=== PATIENT | female | born 2000 | race Asian ===

== ENCOUNTER → 2020-09-16 10:17 | Outpatient (CLI) | payer BC, SELFPAY ==
--- NOTE | ~2020-09-16 | US_ITS ---
EXAMINATION: US thyroid DATE: 09/16/2020 10:32 INDICATION: Enlarged thyroid. TECHNIQUE: Multiple ultrasound images of the thyroid were obtained. COMPARISON: None. FINDINGS: The right thyroid lobe measures 4.2 x 1.2 x 1.5 cm. The left thyroid lobe measures 4.4 x 1.3 x 1.5 c m. There is normal echotexture and echogenicity throughout the thyroid gland. No discrete nodules id entified. Normal vascular flow is present. IMPRESSION: 1. Normal thyroid. Reviewed, dictated and finalized at location A. IMPRESSION: 1. Normal thyroid.
== END ==
PROVIDERS: PCP Family Medicine; Visit Provider Nurse Practitioner
DX: E07.9 Disorder of thyroid, unspecified (principal)
CPT/HCPCS: 76536

== ENCOUNTER → 2022-03-27 08:22 | Outpatient (CLI) | payer BC, SELFPAY ==
--- NOTE | ~2022-03-27 | US_ITS ---
US breast BI complete INDICATION: Bilateral breast and axillary pain. TECHNIQUE: Dedicated bilateral breast ultrasound including all 4 quadrants in the subareolar location s COMPARISON: No prior studies for comparison. FINDINGS: The breasts are composed of normal heterogeneous echotexture without focal solid or cystic mass. IMPRESSION: 1: Normal bilateral breast ultrasound. BI-RADS CATEGORY 1 - NEGATIVE Reviewed, dictated and finalized at location A.
== END ==
PROVIDERS: PCP Obstetrics & Gynecology Gynecology; Visit Provider Obstetrics & Gynecology Gynecology
DX: N64.4 Mastodynia (principal)
CPT/HCPCS: 76641